=== PATIENT | female | born 1975 | race Caucasian/White ===

== ENCOUNTER → 2017-09-07 15:53 | Outpatient (CLI) | payer OTHER, SELFPAY ==
[2017-09-07 16:57] LABS: Add Manual Diff / Slide Review NO; Basophils Percent Auto 1.2 % (0-2); Eosinophils Percent Auto 2.2 % (2-4); Hematocrit 40.7 % (36-46); Hemoglobin 13.9 g/dL (12.0-16.0); Lymphocytes Percent Auto 23.4 % (25-40); Mean Corpuscular HGB Conc 34.1 % (30-36); Mean Corpuscular Hemoglobin 29.8 PG (26-34); Mean Corpuscular Volume 87.4 fL (80-100); Monocytes Percent Auto 6.8 % (3-14); Neutrophils Absolute Auto 4700 /uL (3000-5900); Neutrophils Percent Auto 66.4 % (50-75); Platelet Count 193 X10^3/uL (150-400); Red Blood Cell Count 4.65 X10^6/uL (4.0-5.2); Red Cell Distribution Width 13.4 % (11.6-14.8); White Blood Cell Count 7.1 X10^3/uL (4.5-11.0)
[2017-09-07 17:28] LABS: C-Reactive Protein Quant < 0.5 mg/dL (<1.0)
[2017-09-07 17:55] LABS: TSH w/ Reflex to FT4 1.75 uIU/mL (0.47-4.68)
== END ==
PROVIDERS: PCP Internal Medicine; Visit Provider Nurse Practitioner Family
DX: F41.9 Anxiety disorder, unspecified (principal); L30.9 Dermatitis, unspecified; J30.9 Allergic rhinitis, unspecified
CPT/HCPCS: 36415; 84443; 85025; 86140

== ENCOUNTER → 2018-02-05 12:25 | Outpatient (CLI) | payer OTHER, SELFPAY ==
--- NOTE | 2018-02-05 12:27 | DI.RAD.S_ITS ---
PROCEDURE: XR CHEST 2V INDICATIONS: cough TECHNIQUE: 2 views of the chest were acquired. COMPARISON: None. FINDINGS: Surgical changes and devices: None. Lungs and pleura: No pleural effusions or pneumothorax. Increased opacity in left lower lung field is seen suspicious for small left lower lobe infiltrate. Right lung is clear. Mediastinum: Mediastinal contours are normal. Heart size is normal. Bones and chest wall: No suspicious bony abnormalities. Soft tissues appear unremarkable. IMPRESSION: Finding is suspicious for small left lower lobe infiltrate. Dictated by: Jaime Heard M.D. on 02/05/2018 at 13:14 Approved by: Jaime Heard M.D. on 02/05/2018 at 13:16
== END ==
PROVIDERS: PCP Internal Medicine; Visit Provider Physician Assistant
DX: R05 Cough (principal)
CPT/HCPCS: 71046

== ENCOUNTER → 2019-06-07 15:30 | Outpatient (CLI) | payer OTHER, SELFPAY ==
[2019-06-13 08:26] LABS: Almond Allergy Class 0; Almond Allergy IgE < 0.10 kU/L (< 0.10); Cashew nut Allergy Class 0; Cashew nut Allergy IgE < 0.10 kU/L (< 0.10); Codfish Allergy Class 0; Codfish Allergy IgE < 0.10 kU/L (< 0.10); Cow Milk Allergy IgE 0.14 kU/L (< 0.10); Egg Whites IgE < 0.10 kU/L (< 0.10); Hazelnut Allergy Class 0; Hazelnut Allergy IgE < 0.10 kU/L (< 0.10); Peanut Allergy Class 0; Peanut Allergy IgE < 0.10 kU/L (< 0.10); Salmon Allergy Class 0; Salmon Allergy IgE < 0.10 kU/L (< 0.10); Scallop Allergy Class 0; Scallop Allergy IgE < 0.10 kU/L (< 0.10); Sesame seed Allergy Class 0; Sesame seed Allergy IgE < 0.10 kU/L (< 0.10); Shrimp Allergy Class 0; Shrimp Allergy IgE < 0.10 kU/L (< 0.10); Soybean Allergy Class 0; Soybean Allergy IgE < 0.10 kU/L (< 0.10); Tuna Allergy Class 0; Tuna Allergy IgE < 0.10 kU/L (< 0.10); Walnut Allergy Class 0; Walnut Allery IgE < 0.10 kU/L (< 0.10); Wheat Allergy Class 0; Wheat Allergy IgE < 0.10 kU/L (< 0.10)
== END ==
PROVIDERS: PCP Family Medicine; Referring Provider Physician Assistant; Visit Provider Physician Assistant
DX: L29.8 Other pruritus (principal)
CPT/HCPCS: 36415; 82785; 86003

== ENCOUNTER → 2019-06-24 12:03 | Outpatient (CLI) | payer OTHER, SELFPAY ==
[2019-06-24 12:38] LABS: Add Manual Diff / Slide Review NO; Basophils Absolute Auto 100 /uL (0-100); Basophils Percent Auto 1.1 % (0-2); Eosinophils Absolute Auto 100 /uL (0-450); Hematocrit 42.3 % (36-46); Hemoglobin 14.1 g/dL (12.0-16.0); Lymphocytes Absolute Auto 1400 /uL (1100-4500); Lymphocytes Percent Auto 21.1 % (25-40); Mean Corpuscular HGB Conc 33.3 % (30-36); Mean Corpuscular Hemoglobin 30.3 PG (26-34); Mean Corpuscular Volume 90.8 fL (80-100); Monocytes Absolute Auto 400 /uL (0-900); Monocytes Percent Auto 6.3 % (3-14); Neutrophils Absolute Auto 4600 /uL (1500-7000); Neutrophils Percent Auto 69.5 % (50-75); Platelet Count 219 X10^3/uL (150-400); Red Blood Cell Count 4.66 X10^6/uL (4.0-5.2); Red Cell Distribution Width 13.2 % (11.6-14.8); White Blood Cell Count 6.7 X10^3/uL (4.5-11.0)
[2019-06-24 12:58] LABS: Monotest Negative (Negative)
[2019-06-24 13:11] LABS: Alanine Aminotransferase 13 IU/L (<35); Albumin 4.9 g/dL (3.5-5.0); Albumin Globulin Ratio 1.4 (1.0-2.8); Alkaline Phosphatase 81 U/L (38-126); Aspartate Aminotransferase 23 IU/L (14-36); BUN Creatinine Ratio 10.7 (6-22); Bilirubin Total 0.4 mg/dL (0.2-1.3); Blood Urea Nitrogen 8 mg/dL (7-17); Calcium 9.6 mg/dL (8.4-10.2); Carbon Dioxide 26 mmol/L (22-32); Chloride 102 mmol/L (98-107); Estimated Glomerular Filt Rate > 60.0 mL/min (>60); Globulin 3.5 g/dL (1.7-4.1); Glucose 94 mg/dL (70-100); HEMOLYSIS < 15 (0-50); Potassium 4.4 mmol/L (3.4-5.1); Sodium 140 mmol/L (137-145); Total Protein 8.4 g/dL (6.3-8.2)
[2019-06-24 13:45] LABS: TSH w/ Reflex to FT4 2.28 uIU/mL (0.47-4.68)
== END ==
PROVIDERS: PCP Family Medicine; Referring Provider Family Medicine; Visit Provider Family Medicine
DX: R53.83 Other fatigue (principal)
CPT/HCPCS: 80053; 84443; 85025; 86318

== ENCOUNTER → 2019-09-03 08:40 | Outpatient (CLI) | payer OTHER, SELFPAY ==
--- NOTE | 2019-09-03 08:41 | DI.MG.S_ITS ---
BILATERAL DIGITAL SCREENING MAMMOGRAM 3D/2D WITH CAD: 09/03/2019 CLINICAL: Baseline exam. Routine screening. Family history of breast cancer. No prior exams were available for comparison. The tissue of both breasts is heterogeneously dense. This may lower the sensitivity of mammography. Current study was also evaluated with a Computer Aided Detection (CAD) system. No significant masses, calcifications, or other findings are seen in either breast. IMPRESSION: NEGATIVE There is no mammographic evidence of malignancy. A 1 year screening mammogram is recommended. This exam was interpreted at Station ID: [id number]. NOTE: For mammograms, a report in lay terms will be sent to the patient. Approximately 15% of breast malignancies will not be visualized mammographically. In the management of a palpable breast mass, a negative mammogram must not discourage biopsy of a clinically suspicious lesion. Electronically Signed By: Arron cheng/jayme:09/03/2019 09:15:13 letter sent: Normal Exam ACR BI-RADS Category 1: Negative [id number]
== END ==
PROVIDERS: PCP Family Medicine; Referring Provider Family Medicine; Visit Provider Family Medicine
DX: Z12.31 Encounter for screening mammogram for malignant neoplasm of breast (principal); Z80.3 Family history of malignant neoplasm of breast
CPT/HCPCS: 77063; 77067

== ENCOUNTER → 2019-09-05 13:58 | Outpatient (CLI) | payer OTHER, SELFPAY ==
[2019-09-06 12:08] LABS: SARS CoV19 IgG Negative (Negative)
== END ==
PROVIDERS: PCP Family Medicine; Referring Provider Family Medicine; Visit Provider Family Medicine
DX: Z03.818 Encounter for observation for suspected exposure to other biological agents ruled out (principal)
CPT/HCPCS: 36415; 86769